=== PATIENT | male | born 1995 | race Caucasian/White ===

== ENCOUNTER 2022-07-28 18:07 | Emergency (ER) | payer MEDICAID ==
[~2022-07-28] VITALS: Ht 190.5 cm; Wt 81.6 kg
[2022-07-28 18:34] VITALS: BP_SYST 132
--- NOTE | 2022-07-28 19:15 | NUR ---
ER examining patient.
[2022-07-28] MEDS ORDERED: CEPH-548 PO (19:18)
[2022-07-28] MEDS ORDERED: SULF1TAB48 PO (19:18)
--- NOTE | 2022-07-28 20:07 | NUR ---
Patient given written and verbal discharge instructions and verbalizes understanding. ER MD Pastor discussed with patient the results and treatment provided. Patient in stable condition. ID arm band removed. Rx for Cephalexin and Bactrim Ds provided to pt. Patient educated on pain management and to follow up with PMD. Opportunity for questions provided and answered. Medication side effect fact sheet provided.
[2022-07-28 21:40] VITALS: BP_SYST 124
== END 2022-07-28 20:06 | disposition home or self-care (01) ==
LOC: SED 18:07
DX: L01.00 Impetigo, unspecified (principal); R21 Rash and other nonspecific skin eruption; F17.220 Nicotine dependence, chewing tobacco, uncomplicated; F10.90 Alcohol use, unspecified, uncomplicated; Z79.899 Other long term (current) drug therapy; Y90.6 Blood alcohol level of 120-199 mg/100 ml
CPT/HCPCS: 99283